=== PATIENT | female | born 1980 | race African-American/Black ===

== ENCOUNTER 2017-07-13 09:47 | Emergency (ER) | payer MEDICARE ==
[~2017-07-13] VITALS: Ht 162.6 cm; Wt 65.8 kg
[2017-07-13] MEDS ORDERED: HYDROCODONE/APAP 10MG-325MG TAB PO ONE (10:15)
== END 2017-07-13 10:25 | disposition home or self-care (01) ==
LOC: ER 09:47
DX: K08.89 Other specified disorders of teeth and supporting structures (principal); K02.9 Dental caries, unspecified
CPT/HCPCS: 99282